=== PATIENT | male | born 1975 | race Caucasian/White ===

== ENCOUNTER → 2024-04-07 17:08 | Outpatient (CLI) | payer OTHER, SELFPAY ==
--- NOTE | 2024-04-07 17:12 | DI.RAD.S_ITS ---
PROCEDURE: XR KNEE LT 3V INDICATIONS: KNEE PAIN TECHNIQUE: 3 views of the knee were acquired. COMPARISON: None. FINDINGS / IMPRESSION: Suspected mild knee joint effusion. Minimal degenerative changes in the medial compartment with small osteophytes. Lateral and patellofemoral compartments within normal limits. No fracture or dislocation. No suspicious soft tissue calcifications. If symptoms persist or worsen, or there is high clinical suspicion of acute abnormality, MRI could be performed. Dictated by: Jere Hemphill M.D. on 04/08/2024 at 9:19 Approved by: Jere Hemphill M.D. on 04/08/2024 at 9:22
== END ==
PROVIDERS: PCP Family Medicine; Referring Provider Family Medicine; Visit Provider Family Medicine
DX: M25.562 Pain in left knee (principal); G89.29 Other chronic pain
CPT/HCPCS: 73562

== ENCOUNTER → 2024-04-18 11:11 | Outpatient (CLI) | payer OTHER, SELFPAY ==
--- NOTE | 2024-04-18 | DI.MRI.S_ITS ---
PROCEDURE: MR KNEE LT WO CON INDICATIONS: CHRONIC PAIN OF LEFT KNEE TECHNIQUE: Noncontrast sagittal PD fast spin echo and T2 fast spin echo with fat saturation, sagittal 3-D FLASH with fat saturation; coronal T1 spin echo and PD fast spin echo with fat saturation, and axial PD fast spin echo with fat saturation through the knee. COMPARISON: None. FINDINGS: Image quality: Excellent. Menisci: Abnormal appearance of the medial meniscus with abnormal T2 weighted signal predominantly involving the posterior horn into the mid body and to a lesser degree in the anterior horn consistent with horizontally oriented meniscal tear. The lateral meniscus demonstrates mild increased T2 weighted signal at the posterior meniscal root with minimal signal exiting to the inferior surface of the posterior horn (sagittal series 8, image 25). Cruciate ligaments: The anterior and posterior cruciate ligaments appear intact. Medial structures: Medially there is a large approximately 4.1 cm cc by 2.8 cm AP by 1.2 cm transverse abnormal multi septated structure which extends from the medial aspect of the medial meniscus suspicious for parameniscal cyst with associated surrounding edema and/or increased medial bursal fluid. Mild increased T2 weighted signal within and surrounding the medial collateral ligament suspicious for grade 2 injury/strain which may be chronic. Otherwise the medial collateral ligament is intact. Mild increased T2 weighted signal/thickening of the distal semimembranosus tendon. Mild increased T2 weighted signal at the posterior medial meniscocapsular junction. The posterior oblique ligament, semitendinosus tendon normal. Visualized portions of the pes anserinus tendons appear normal. Lateral structures: Moderate increased T2 weighted signal/thickening of mid and distal aspect of the lateral collateral ligament and to a lesser degree at its proximal attachment some of which may be related to chronic changes versus acute injury/strain. Increased T2 weighted signal of the posterior-lateral meniscocapsular junction. Moderate increased T2 weighted signal/thickening of the distal aspect of the biceps femoris tendon. Moderate increased T2 weighted signal/thickening of the distal popliteus tendon on the lateral femoral condyle. Mild increased T2 weighted signal of the distal iliotibial band with intact fibers. Anterior structures: Mild increased T2 weighted signal/thickening of the distal aspect of the patellar tendon with mild to moderate prepatellar soft tissue edema. The quadriceps and tendon is intact. Patellar alignment is normal. No femoral trochlear dysplasia or ventral trochlear prominence. Bones and cartilage: Moderate diffuse cartilaginous thinning in the lateral compartment with mild subchondral edema in the lateral tibial plateau (coronal series 11, image 19) commonly related to chronic degenerative changes. No fracture or dislocation. The cartilage of the medial femorotibial and patellofemoral compartments, appears normal in thickness. Joint space: There is mild knee joint effusion. No Chen's cyst. IMPRESSION: Horizontal tear of the medial meniscus with associated large parameniscal cyst, and suspected grade 2 injury/strain of the medial collateral ligament as discussed above. Mild knee joint effusion. Mild and moderate increased T2 weighted signal/thickening of several tendons and ligaments as discussed above, acute versus chronic. Moderate increased T2 weighted signal/thickening lateral collateral ligament. Mild increased T2 weighted signal/thickening of the distal aspect of the patellar tendon. Moderate diffuse cartilaginous thinning in the lateral compartment. Dictated by: Jere Hemphill M.D. on 04/20/2024 at 9:50 Approved by: Jere Hemphill M.D. on 04/20/2024 at 10:53
== END ==
PROVIDERS: PCP Family Medicine; Referring Provider Family Medicine; Visit Provider Family Medicine
DX: S83.242A Other tear of medial meniscus, current injury, left knee, initial encounter (principal); M25.462 Effusion, left knee; M25.562 Pain in left knee; G89.29 Other chronic pain
CPT/HCPCS: 73721

== ENCOUNTER 2024-07-30 06:44 | Day surgery (SDC) | payer OTHER, SELFPAY ==
--- NOTE | 2024-07-30 | PATH_ITS ---
[facility] Accession Number: [id number] No. of containers..01 Tissue . 01 Material submitted: . colon - ASCENDING COLON POLYP . 01 Diagnosis: ASCENDING COLON POLYP: Tubular adenoma. [facility] 08/03/2024 1532 Local . 01 Electronically signed: . Lars Elizondo MD, Pathologist NPI- [id number] . 01 Gross description: . Received in formalin with two patient identifiers and ascending colon polyp, is a single dejesus soft tissue fragment, 1.1 cm in greatest dimension, submitted in A1. ([id number]) /MRV 08/03/2024 1532 Local . 01 Pathologist provided ICD-10: D12.2 . 01 CPT . 596215 Specimen Comment: A courtesy copy of this report has been sent to [phone] Performed at: [address] [facility] [id number] MD Lars Elizondo MD Phone: [phone]
[2024-07-30 07:07] VITALS: BP 143/90; PULSE 82; RESP 17; TEMP 36.6; O2SAT 97
[2024-07-30] MEDS: SODIUM CHLORIDE 0.9% 1,000 ML 84 ML IV (07:24)
--- NOTE | 2024-07-30 07:36 | P.HP_ITS ---
History of Present Illness History of Present Illness Date Patient Seen: 07/30/24 Time Patient Seen: 07:36 Chief complaint: SDC Narrative: Ed is a 49 year old man with hemorrhoids and due for a colonoscopy. See April office note for details. [facility] Medical History (Updated 07/30/24 @ 07:37 by Raul Vivar MD) Chronic pain of left knee Family history of prostate cancer Social History Smoking Status: Never smoker Meds Home Medications and Allergies Home Medications Medication Instructions Recorded Confirmed Type trazodone 100 mg tablet 100 mg PO BEDTIME 05/18/24 05/18/24 History sodium,potassium,mag sulfates 17.5 See Rx Instructions PO .COMPLEX 07/06/24 Rx gram-3.13 gram-1.6 gram oral soln #354 mL (Suprep Bowel Prep Kit) Allergies Allergy/AdvReac Type Severity Reaction Status Date / Time No Known Drug Allergies Allergy Unverified 05/18/24 16:16 Exam Vital Signs (past 8 hours): - 07/30/24 07:07 Temperature 97.9 F Pulse Rate 82 Respiratory Rate 17 Blood Pressure 143/90 H Pulse Oximetry 97 Oxygen Delivery Method Room Air Oxygen Delivery Method Room Air Const General: No acute distress Resp Effort & Inspection: normal respiratory effort Assessment & Plan Assessment and plan (1) Rectal bleeding: Status: Acute (2) Hemorrhoids: Qualifiers: Hemorrhoid type: second degree Qualified Code(s): K64.1 - Second degree hemorrhoids Status: Acute Plan Colonoscopy and rubber band ligation of internal hemorrhoids Time-Based Coding :: [TOTAL MINUTES] spent with patient and on the chart (including review of chart, obtaining history, exam, reviewing outside data, placing orders, documenting exam and treatment plan, and counseling patient) on [DATE].
--- NOTE | 2024-07-30 08:10 | PM.OP.COLON ---
Operative Date/Time/Diagnoses Date of procedure: 07/30/24 Time of procedure: 08:10 Pre-op diagnosis: Colon cancer screening and internal hemorrhoids Post-op diagnosis: same Procedure & Clinicians Study performed: Colonoscopy Rubber-band ligation of internal hemorrhoids Same procedure as scheduled: Yes Surgeon: Raul Vivar Procedure Notes Procedure in detail: Surgeon: Raul Vivar MD Anesthesia: Norm Haddad D.O. Procedure: The patient was brought to the endoscopy suite, placed in left lateral decubitus position. The patient was connected to monitoring devices. A time-out was performed. Sedation was administered. Once the patient was adequately sedated, a digital rectal exam was performed. External hemorrhoids were noted. The scope was then inserted and advanced to the cecum where the appendiceal orifice was identified and photographed. The scope was then slowly withdrawn over greater than 6 minutes. The mucosa was thoroughly inspected. There was a 5 mm polyp in the ascending colon removed with a cold snare. The scope was retroflexed in the rectum. Internal hemorrhoids were noted. The scope was straightened and removed. We then perform rubber-band ligation of the right and left lateral internal hemorrhoidal columns. The patient was awakened and brought to recovery. Scope withdrawal time: 9 minutes Sedation time: 15 minute EBL: 5 mL Findings: 5 mm ascending colon polyp, internal and external hemorrhoids Post-procedure Disposition: PACU
[2024-07-30 08:14] VITALS: BP 117/73; PULSE 92; RESP 16; TEMP 37.1; O2SAT 95
[2024-07-30 08:18] VITALS: BP 124/75; PULSE 90; RESP 16; O2SAT 95
[2024-07-30 08:26] VITALS: BP 120/70; PULSE 85; RESP 16; TEMP 36.8; O2SAT 98
== END 2024-07-30 08:42 | disposition home or self-care (01) ==
PROVIDERS: PCP Family Medicine; Referring Provider Surgery; Visit Provider Surgery
PROC: 0DJD8ZZ Inspection of Lower Intestinal Tract, Via Natural or Artificial Opening Endoscopic (ICD-10-PCS; CPT 45378; principal; 2024-07-30 07:45)
DX: Z12.11 Encounter for screening for malignant neoplasm of colon (principal); D12.2 Benign neoplasm of ascending colon; K64.8 Other hemorrhoids; K64.4 Residual hemorrhoidal skin tags
CPT/HCPCS: 45385; 46221; J2704